=== PATIENT | female | born 1975 | race Caucasian/White ===

== ENCOUNTER → 2019-03-11 | Day surgery (SDC) | payer OTHER ==
[2019-03-10 13:47] LABS: BASOPHILS % 0.1 % (0.0-1.0); EOSINOPHILS # (AUTO) 0.1 (0.0-0.4); EOSINOPHILS % 0.9 % (0.0-6.0); HEMOGLOBIN 13.4 g/dL (12.0-16.0); LYMPHOCYTES # (AUTO) 1.9 (1.0-3.2); MEAN CORPUSCULAR HEMOGLOBIN 36.3 pg (28-32); MEAN CORPUSCULAR HGB CONC 33.5 g/dL (31-35); MEAN CORPUSCULAR VOLUME 108.4 fL (81-99); MONOCYTES # (AUTO) 0.4 (0.2-0.8); MONOCYTES % 6.6 % (4.4-11.3); NEUTROPHILS # (AUTO) 4.3 (2.1-6.9); PLATELET COUNT 330 x10e3/uL (140-360); RED BLOOD COUNT 3.69 x10e6/uL (3.6-5.1); RED CELL DISTRIBUTION WIDTH 13.4 % (11.7-14.4)
[2019-03-10 14:04] LABS: ANION GAP 12.1 mmol/L (8-16); BLOOD UREA NITROGEN 7 mg/dL (7-26); BUN/CREATININE RATIO 10 (6-25); CALCIUM 9.6 mg/dL (8.4-10.2); CARBON DIOXIDE 24 mmol/L (22-29); CHLORIDE 102 mmol/L (98-107); CREATININE, SERUM 0.67 mg/dL (0.57-1.11); EST GLOMERULAR FILTRATION RATE > 60 ML/MIN (60-); GLUCOSE 94 mg/dL (74-118); POTASSIUM 4.1 mmol/L (3.5-5.1); SODIUM 134 mmol/L (136-145)
--- NOTE | 2019-03-10 14:08 | Diagnostic Imaging Report ---
EXAMINATION: PA and lateral views of the chest. COMPARISON: None CLINICAL HISTORY: Preoperative exam for foot surgery DISCUSSION: Lines/tubes: None. Lungs: The lungs are well inflated and clear. There is no evidence of pneumonia or pulmonary edema. Pleura: There is no pleural effusion or pneumothorax. Heart and mediastinum: The cardiomediastinal silhouette is normal. Bones and soft tissues: No acute bony abnormalities. IMPRESSION: No acute cardiopulmonary abnormalities. Signed by: Dr. Italo Alvarado M.D. on 03/10/2019 2:05 PM
[~2019-03-11] MED LIST: ACETAMINOPHEN 1000 MG/100 ML 100 ML IV ONE; ACETAMINOPHEN 1000 MG/100 ML IV ONE; ADVIL200 MG PO; AMITRIPTYLINE H25 MG PO; BACITRACIN 50,000 UNIT VIAL ONE; BUPIVACAINE HCL 0.5% INJ 30 ML VIAL INJ ONE; CEFAZOLIN SOD 1 GM VIAL ONE; DEXAMETHASONE SOD PHOS INJ 4 MG/ML VIAL ONE; FENTANYL CITRATE/PF 100MCG/2 ML INJ ONE; KETOROLAC TROMETHAMINE 30 MG/ML VIAL ONE; LIDOCAINE HCL 2% LOCAL INJ 5 ML SDV VIAL INJ ONE; MIDAZOLAM HCL 2 MG/2 ML VIAL ONE; NEOSTIGMINE 1 MG/ML 10ML VIAL ONE; ONDANSETRON HCL 4 MG ORAL DISINTEGRATING TAB ONE; ONDANSETRON HCL INJ 2MG/ML 2ML 2 MG/ML VIAL ONE; OXYCODONE/ACETAMINOPHEN 5-325 1 EACH TABLET ONE; PROPOFOL IV EMULSION 10 MG/ML 20 ML VIAL ONE; SEVOFLURANE INHAL SOLN 250 ML PEN BTL ONE; TRAZODONE HCL50 MG PO; ZOLOFT50 MG
--- OUTSIDE RECORDS SUMMARY | 2019-03-11 09:11 | XMS REPORT | Clinical Summary ---
Author Author [facility] Address Unknown Phone Unavailable Care Team Providers Care Traffic Engineering Director Name Role Phone Asked, No Pcp PCP Unavailable Allergies Comments Active Allergy Reactions Severity Noted Date Patient says codeine makes her sick Codeine Other (See 10/15/2016 Comments) Medications End Date Status Medication Sig Dispensed Refills Start Date Active traZODone (DESYREL) 50 MG Take 50 mg by 0 tablet mouth nightly. Active lansoprazole (PREVACID) Take 15 mg by 0 15 MG capsule mouth daily. Active amitriptyline-chlordiazep Take 1 tablet 0 oxide (LIMBITROL) 25-10 by mouth mg tablet daily. Active Problems Problem Noted Date Atypical chest pain 10/15/2016 Chest pain 10/15/2016 Social History Date Tobacco Use Types Packs/Day Years Used Never Smoker Alcohol Use Drinks/Week oz/Week Comments Yes Occasional drinker Sex Assigned at Date Recorded Not on file Industry Job Start Date Occupation Not on file Not on file Not on file Travel End Travel History Travel Start No recent travel history available. Last Filed Vital Signs Not on file Plan of Treatment Health Maintenance Due Date Last Done Comments CERVICAL CANCER SCREENING 1995 INFLUENZA VACCINE 07/01/2019 Results Not on fileafter 03/10/2018 Insurance Payer Benefit Subscriber ID Type Phone Address Plan / Group [facility] [employer] xxxxxxxx PPO [employer] Advance Directives Patient has advance care planning documents on file. For more information, mando linda contact: Adi Gracia [address] [address]
--- OUTSIDE RECORDS SUMMARY | 2019-03-11 09:12 | XMS REPORT ---
Author [facility] Address Unknown Phone Unavailable Care Team Providers Care Can Tender Name Role Phone PHILL UP Unavailable Unavailable Payers Payer Name Policy Type Policy Number Effective Date Expiration Date Problems This patient has no known problems. Allergies, Adverse Reactions, Alerts Allergy Name Allergy Type Status Severity Reaction(s) Onset Date Inactive Date Treating Clinician Comments codeine DA Active MO 2016-09-02 00:00:00 Medications This patient has no known medications. Results Test Description Test Time Test Comments Text Results Atomic Results Result Comments CHEST 2 VIEWS 2019-03-10 14:03:00 [place] [address] Patient Name: JOHNATHAN IBRAHIM MR #: [id number] : 1975 Age/Sex: 43/F Req #: [id number] Adm Physician: Ordered by: PHILL UP DPM Report #: [id number] Location: OR Room/Bed: Procedure: [id number] DX/CHEST 2 VIEWS Exam Date: 03/10/19 Exam Time: 1345 REPORT STATUS: Signed EXAMINATION: PA and lateral views of the chest. CO MPARISON: None CLINICAL HISTORY: Preoperative exam for foot surgery DISCUSSION: Lines/tubes: None. Lungs: The lungs are well inflated and clear. There is no evidence of pneumonia or pulmonary edema. Pleura: There is no pleural effusion or pneumothorax. Heart and mediastinum: The cardiomediastinal silhouette is normal. Bones and soft tissues: No acute b janet abnormalities. IMPRESSION: No acute cardiopulmonary abnormalities. Signed by: Dr. Hermann Smith M.D. on 03/10/2019 2:05 PM Dictated By: HERMANN SMITH MD [id number] Transcribed By: DAVIS on 03/10/19 1407 COPY TO: PHILL UP DPM
[2019-03-11 14:00] VITALS: BP 103/67
--- NOTE | 2019-03-12 02:19 | Operative Report ---
DATE OF PROCEDURE: 03/11/2019 SURGEON: River Riojas DPM ROOM NUMBER: [facility]. PREOPERATIVE DIAGNOSIS: Contreras fracture, 5th metatarsal base of the right foot. POSTOPERATIVE DIAGNOSIS: Contreras fracture, 5th metatarsal base of the right foot. TITLE OF THE OPERATION: Open reduction with internal fixation, 5th metatarsal base of the right foot. ANESTHESIA: General endotracheal. HEMOSTASIS: A right thigh tourniquet, 350 mmHg. PROCEDURE IN DETAIL: The patient was taken to the operating room in a mildly sedated state and placed upon the operating table in supine position. Following induction of general anesthetic, the right lower extremity was elevated to 60 degrees to exsanguinate before inflating the pneumatic thigh tourniquet to 350 mmHg to create hemostasis. Right lower extremity was placed upon the operating table prior to performing the following procedure. Procedure #1 is an open reduction with internal fixation of 5th metatarsal base of the right foot. A linear longitudinal incision of approximately 4 cm in length was made at the lateral aspect of 5th metatarsal. The incision was deepened via sharp and blunt dissection on the level of the periosteum and insertion of the tendons. The incision was deepened and the transverse fracture was noted. This was a transverse Contreras fracture of the 5th metatarsal base. This was adequately realigned with manual manipulation and then a bone clamp was used to hold the bone in appropriate compression. A [id number] K-wire was placed from distal lateral to proximal medial. This was done in an oblique fashion from distal to proximal, which allowed for adequate stabilization of the fracture fragment. A 2nd K-wire was then added and then utilizing a 4-0 noncannulated screw, the lag screw effect was accomplished. The area was irrigated with copious amounts of sterile saline solution and staple was applied to the lateral aspect of the Contreras fracture. Staple was noted to be in excellent position with no prominence or impingement upon joint or structures, irrigated with copious amounts of sterile saline solution. Deep closure with 3-0 Vicryl, subcutaneous closure with 4-0 Vicryl and 4-0 nylon. Human tissue allograft was used to fill the voids created and stimulate healing. After surgery, the area was blocked with 0.5 Marcaine, Decadron-LA. Released pneumatic thigh tourniquet, showed a normal hyperemic flush to all digits of the right foot. The appropriate mildly compressive dressings have been applied including posterior splint. The patient left the operating room with vital signs stable in apparent satisfactory condition, having tolerated both anesthetic and procedure well. LO Ramos/SAM /[id number]
== END | disposition home or self-care (01) ==
LOC: OR 09:09
PROVIDERS: ATTEND Podiatrist Foot Surgery
DX: S92.351A Displaced fracture of fifth metatarsal bone, right foot, initial encounter for closed fracture (principal); F32.9 Major depressive disorder, single episode, unspecified; F41.8 Other specified anxiety disorders; K21.9 Gastro-esophageal reflux disease without esophagitis; K44.9 Diaphragmatic hernia without obstruction or gangrene; Z88.6 Allergy status to analgesic agent; X58.XXXA Exposure to other specified factors, initial encounter; Z01.810 Encounter for preprocedural cardiovascular examination; Z01.812 Encounter for preprocedural laboratory examination; Z01.818 Encounter for other preprocedural examination
CPT/HCPCS: 28485; 36415; 71046; 80048; 85025; 93005; J0131; J0690; J1100; J1885; J2001; J2250; J2405; J2704; J2710; Q0162; C1713